=== PATIENT | female | born 1950 | race Caucasian/White ===

== ENCOUNTER → 2016-10-30 | Outpatient (CLI) | payer MEDICARE, OTHER ==
[~2016-10-30] MED LIST: AMARYL1 MG PO; ASPIRIN81 M1 PO; ATENOLOL PO; AZOR 10/40 MG T1 TAB PO; CALCIUM WITH D PO; CATAPRES-TTS-20.2 MG PO; CRESTOR5 MG PO; CVS GLUCOSAMIN1 EACH PO; EFFEXOR XR150 MG PO; FISH OIL 1,2001 CAP PO; HYDROCHLOROTHIA25 MG PO; METFORMIN PO; MULTIPLE VITAMI1 T10 PO; NIASPAN PO; ONGLYZA5 MG PO; TRILIPIX135 MG PO; VIMOVO 500-201 EACH PO
--- NOTE | ~2016-10-30 | MY11 ---
[facility] A Service of [facility] RADIOLOGY TEXT RESULTS PATIENT: SOLOMON CALDERON LOCATION: [facility] : 50 UNIT #: [id number] AGE: [address]: Debbie Reyes MD SEX: F ORDER DR: [id number] [address] [address] [id number] MR#: [id number] Acc #: [id number] NAME: SOLOMON CALDERON : 1950 SEX: F STUDY DATE/TIME: 10/30/2016 14:10 UNIT: [facility] ROOM: STUDY DESCRIPTION: MY Mammogram Screening [facility] [place] Attending Physician: Debbie Reyes M.D. Referring Physician: Debbie Reyes M.D. Ordering Physician: Debbie Reyes M.D. Primary Care Physician: Debbie eRyes M.D. MEDICAL IMAGING REPORT This report is preliminary unless electronic signature is present. EXAM Digital screening mammogram, 10/30/2016, [facility]. HISTORY 66-year-old woman no risk elevation. Prior excisional right breast biopsy. Annual screen. COMPARISON Outside mammograms date to 08/30/2006 with most recent 05/24/2015 [facility]. TECHNIQUE Digital imaging of each breast was completed utilizing screening protocol. Review includes FDA-approved CAD device. FINDINGS Breast parenchyma is predominantly fatty replaced. There is no interval occurring mass. There are no suspicious microcalcifications and no architectural deformity. IMPRESSION Negative mammogram. Annual screening recommended. Patients over the age of 40 are entered into a reminder system with target due date for the next mammogram. A result letter will also be sent to the patient. BIRADS: 1 Negative Dictated by... [facility] A Service [facility] RADIOLOGY TEXT RESULTS PATIENT: SOLOMON CALDERON LOCATION: [facility] : 50 UNIT #: [id number] AGE: [address]: Debbie Reyes MD SEX: F ORDER DR: Jesse B. Murcia, M.D. THIS IS AN ELECTRONICALLY VERIFIED REPORT Jesse Murcia M.D. at 11/10/2016 7:12 AM BROOK/crys TD: 11/03/2016 17:11 JOB #: [id number] MEDICAL IMAGING REPORT Page 1 of 1
== END | disposition home or self-care (01) ==
LOC: SMAM 13:44
DX: Z12.31 Encounter for screening mammogram for malignant neoplasm of breast (principal); Z98.890 Other specified postprocedural states
CPT/HCPCS: G0202